=== PATIENT | male | born 1985 | race Caucasian/White ===

== ENCOUNTER 2019-02-16 23:30 | Emergency (ER) | payer OTHER ==
[~2019-02-16] VITALS: Ht 167.6 cm; Wt 86.2 kg
--- NOTE | 2019-02-17 00:11 | NUR ---
[employer] IN ROOM
--- NOTE | 2019-02-17 00:46 | Diagnostic Imaging Report ---
Left foot radiographs 2 views, left ankle radiographs 3 views HISTORY: Pain. COMPARISON: None available. FINDINGS: Bones: A 2.1 cm well-circumscribed lucency with sclerotic border anterior calcaneal body is consistent with a benign intracalcaneal lipoma or bone cyst. Osseous alignment is within normal limits. Joints: The joint spaces are well-maintained. Soft tissues: The soft tissues appear unremarkable. IMPRESSION: No acute radiographic osseous abnormality. Signed by: Luís Conner DO on 02/17/2019 12:42 AM
[2019-02-17] MEDS ORDERED: ULTRAM50 MG PO (01:49)
--- NOTE | 2019-02-17 02:02 | NUR ---
ORTHO BOOT PLACED ON PATIENT, INST ON USE. VERBALIZED UNDERSTANDING.
== END 2019-02-17 02:09 | disposition home or self-care (01) ==
LOC: ER 23:30
DX: S93.492A Sprain of other ligament of left ankle, initial encounter (principal); Y35.811A Legal intervention involving manhandling, law enforcement official injured, initial encounter; X50.1XXA Overexertion from prolonged static or awkward postures, initial encounter; Y99.0 Civilian activity done for income or pay
CPT/HCPCS: 99283